=== PATIENT | female | born 1965 | race Caucasian/White ===

== ENCOUNTER 2022-04-08 21:19 | Emergency (ER) | payer MEDICAID, SELFPAY ==
--- NOTE | ~2022-04-08 | CT_ITS ---
EXAMINATION: CT ABDOMEN AND PELVIS WITHOUT CONTRAST CLINICAL INFORMATION: Hematuria COMPARISON: None TECHNIQUE: Multidetector volumetric imaging was performed from the superior aspect of the liver through the pubic symphysis. Sagittal and coronal reformatted images were obtained on the technologist's workstation. This CT examination was performed using dose optimization techniques as appropriate, variously including the following: *Automated exposure control *Adjustment of mA and/or kV according to patient size (this includes techniques or standardized protocols for targeted exams where dose is matched to indication/reason for exam; i.e. extremities or head) *Use of iterative reconstruction technique DLP: 905 mGy-cm FINDINGS: LUNG BASES: The visualized lung bases are unremarkable. LIVER, GALLBLADDER, AND BILIARY TREE: The liver is normal in size, shape, and attenuation. There are a couple benign cyst in the medial segment of liver and a 6 mm hypodensity in the lateral segment, too small to characterize but of doubtful clinical significance. No suspicious liver lesions. No biliary dilatation. Gallbladder unremarkable. PANCREAS: Unremarkable. SPLEEN: Unremarkable. ADRENAL GLANDS: Unremarkable. KIDNEYS AND URETERS: The kidneys are normal in size, shape, and attenuation. No hydronephrosis, hydroureter, or calculi seen. Subcentimeter hyperdense cyst emanates from the lower lateral cortex of left kidney. No follow-up required. Subcentimeter angiomyolipoma also present in the lower pole of the left kidney. No follow-up required. No perinephric stranding. BLADDER: Unremarkable. GASTROINTESTINAL TRACT: The small and large bowel are unremarkable. There are a few scattered colonic diverticula. No evidence of diverticulitis. The appendix is unremarkable. ABDOMINAL WALL: No significant hernia is appreciated. LYMPH NODES: Normal. VASCULAR: Unremarkable. PELVIC VISCERA: There is a 3 cm fibroid within the anterior uterus. Uterus and adnexa otherwise unremarkable. OSSEOUS STRUCTURES: Unremarkable. CT/CT abdomen pelvis wo IV con IMPRESSION: * No etiology for the patient's hematuria is identified. * There are a few scattered colonic diverticula without evidence of diverticulitis. Fleischner guidelines were followed.
[2022-04-08 21:26] VITALS: BP 134/73; PULSE 125; RESP 18; TEMP 36.2; O2SAT 98; BMI 46.5
[2022-04-08 21:59] LABS: MANUAL DIFF FLAG NO
[2022-04-08 22:01] LABS: Basophils Percent Auto 0.4 % (0-2); Eosinophils Absolute Auto 0.3 X10*3/uL (0.0-0.4); Hematocrit 38.8 % (37.0-47.0); Hemoglobin 12.2 g/dl (12.0-16.0); Imm Gran Abs Auto 0.02 X10*3/uL (0.00-0.03); Imm Gran Pct Auto 0.2 % (0.0-0.4); Lymphocytes Absolute Auto 2.2 X10*3/uL (1.2-4.9); Mean Corpuscular HGB Conc 31.4 g/dl (31.0-35.0); Mean Corpuscular Hemoglobin 25.3 pg (27.0-33.0); Mean Corpuscular Volume 80.3 fL (80.0-98.0); Mean Platelet Volume 9.9 fL (9.4-12.3); Monocytes Absolute Auto 0.6 X10*3/uL (0.1-1.2); Monocytes Percent Auto 6.7 % (2-11); Neutrophils Absolute Auto 5.4 x10*3/uL (2.0-8.3); Neutrophils Percent Auto 63.7 % (45-73); Platelet Count 294 X10*3/uL (160-400); Red Blood Count 4.83 X10*6/uL (4.20-5.50); Red Cell Distribution Width 15.6 % (11.0-16.0); White Blood Count 8.4 X10*3/uL (4.8-10.8)
[2022-04-08 22:01] LABS: Appearance Urine Clear; Color Urine Yellow; Glucose Urine UA Negative (Negative); Leukocyte Esterase Urine Small (1+) (Negative); Nitrite Urine Negative (Negative); UMIC TRIGGER UACC YES; Urine Blood Large (3+) (Negative); Urine Ketones Negative (Negative); Urine Protein Negative (Neg-Trace)
[2022-04-08 22:04] LABS: Bacteria Urine None Seen (None Seen); Hyaline Casts Urine 0-2 /LPF (0-2); RBC Urine >20 /HPF (0-2); UACC Culture Trigger YES
[2022-04-08 22:15] LABS: Alanine Aminotransferase 19 U/L (0-31); Alkaline Phosphatase 112 U/L (39-117); Anion Gap 17 (12-20); Aspartate Amino Transferase 16 U/L (5-31); Bilirubin Total 0.2 mg/dL (0.0-1.0); Blood Urea Nitrogen 21 mg/dL (9-16); Calcium 8.7 mg/dL (8.4-10.2); Carbon Dioxide 22 mmol/L (22-29); Chloride 103 mmol/L (96-108); Creatinine Clr Calc Pharmacy 85.7; Estimated Glomerular Filt Rate 60; Glucose Random 108 mg/dL (60-115); Potassium 4.1 mmol/L (3.3-5.1); Sodium 138 mmol/L (135-145); Total Protein 7.1 g/dL (6.5-8.0)
[2022-04-09 01:33] VITALS: BP 123/62; PULSE 80; RESP 18; TEMP 37.2; O2SAT 98
--- NOTE | 2022-04-09 01:33 | ED.GENADULT ---
HPI - General Adult General Chief complaint: General Medical Stated complaint: Vaginal Bleeding/ Fatigue Time Seen by Provider: 04/09/22 01:33 Source: patient Mode of arrival: ambulatory Limitations: no limitations History of Present Illness HPI narrative: Patient no significant medical history complaining of dysuria with blood no frequency no flank pain no abdominal pain feels a discomfort suprapubic area symptoms started since yesterday no nausea no vomiting no fever or chills Related Data Previous Rx's Medication Instructions Recorded cefuroxime axetil 250 mg tablet 250 mg PO BID 7 days #14 tabs 04/09/22 Allergies Allergy/AdvReac Type Severity Reaction Status Date / Time zolpidem Allergy Unknown Verified 04/12/19 00:00 No Known Allergies Allergy Unverified 12/20/19 17:57 Review of Systems Review of Systems: Yes all other systems are reviewed and are negative [facility] Social History Social History Advance Directives: No Advance Directives Information Provided: Yes Physical Exam ED Vital Signs: Vital Signs - 24 hr 04/08/22 21:26 Temperature 97.1 F Pulse Rate 125 H Respiratory Rate 18 Blood Pressure 134/73 Pulse Oximetry 98 Oxygen Delivery Method Room Air BMI result Body Mass Index 46.5 Appearance: Alert. Oriented X3. No acute distress. ENT: Pharynx normal. Oral Mucosa moist Neck: Normal inspection. Neck supple. CVS: Normal heart rate and rhythm. Pulses normal. Respiratory: No respiratory distress. Equal air entry bilateral, Abdomen: Soft and nontender. Bowel sounds are present, no mass palpable, no CVA tenderness Skin: Skin warm and dry. Normal skin color. Normal skin turgor. Extremities: No lower extremity edema. No calf tenderness Neuro: Oriented X 3. Medications Administered Discontinued Medications Generic Name Dose Route Start Last Admin Trade Name Freq PRN Reason Stop Dose Admin Cefuroxime Axetil 250 mg 04/09/22 02:42 04/09/22 02:52 Cefuroxime Axetil 250 Mg Tablet PO 04/09/22 02:43 250 mg ONCE ONE Administration Medical Decision Making Medical Decision Making [facility] Narrative: Patient workup negative showed just red cells in the urine CT scan negative for any acute pathology likely patient has hemorrhagic cystitis discharge patient home on Ceftin Lab Data [facility] Lab Attestation statement: I reviewed the patient's lab results. 04/08/22 21:43 04/08/22 21:43 Labs: Lab Results 04/08/22 04/08/22 04/08/22 Range/Units 21:43 21:43 21:48 WBC 8.4 (4.8-10.8) X10*3/uL RBC 4.83 (4.20-5.50) X10*6/uL Hgb 12.2 (12.0-16.0) g/dl Hct 38.8 (37.0-47.0) % MCV 80.3 (80.0-98.0) fL MCH 25.3 L (27.0-33.0) pg MCHC 31.4 (31.0-35.0) g/dl RDW 15.6 (11.0-16.0) % Plt Count 294 (160-400) X10*3/uL MPV 9.9 (9.4-12.3) fL Immature Gran % (Auto) 0.2 (0.0-0.4) % Neut % (Auto) 63.7 (45-73) % Lymph % (Auto) 26.0 (20-40) % [place] % (Auto) 6.7 (2-11) % Eos % (Auto) 3.0 (0-4) % Baso % (Auto) 0.4 (0-2) % Lymph # (Auto) 2.2 (1.2-4.9) X10*3/uL [place] # (Auto) 0.6 (0.1-1.2) X10*3/uL Eos # (Auto) 0.3 (0.0-0.4) X10*3/uL Baso # (Auto) 0.0 (0.0-0.2) X10*3/uL Abs Immat Gran (auto) 0.02 (0.00-0.03) X10*3/uL Absolute Neuts (auto) 5.4 (2.0-8.3) x10*3/uL Absolute Nucleated RBC 0.000 (0.0-0.012) X10*3/uL Nucleated RBC % (auto) 0.0 (0.0-0.2) /100WBC Sodium 138 (135-145) mmol/L Potassium 4.1 (3.3-5.1) mmol/L Chloride 103 (96-108) mmol/L Carbon Dioxide 22 (22-29) mmol/L Anion Gap 17 (12-20) BUN 21 H (9-16) mg/dL Creatinine 0.96 (0.5-1.4) mg/dL Estim Creat Clear Calc 85.7 Estimated GFR 60 Random Glucose 108 (60-115) mg/dL Calcium 8.7 (8.4-10.2) mg/dL Total Bilirubin 0.2 (0.0-1.0) mg/dL AST 16 (5-31) U/L ALT 19 (0-31) U/L Alkaline Phosphatase 112 (39-117) U/L Total Protein 7.1 (6.5-8.0) g/dL Albumin 4.0 (3.5-5.0) g/dL Urine Color Yellow Urine Appearance Clear Urine pH 5.0 (5.0-9.0) Ur Specific [place] 1.020 (1.005-1.025) Urine Protein Negative (Neg-Trace) mg/dL Urine Glucose (UA) Negative (Negative) mg/dL Urine Ketones Negative (Negative) mg/dL Urine Blood Large (3+) H (Negative) Urine Nitrite Negative (Negative) Ur Leukocyte Esterase Small (1+) H (Negative) Urine RBC >20 H (0-2) /HPF Urine WBC 11-20 H (0-5) /HPF Ur Squamous Epith Cells 3-5 (0-2) /HPF Urine Bacteria None Seen (None Seen) Hyaline Casts 0-2 (0-2) /LPF Discharge Plan Discharge Clinical Impression: Acute cystitis with hematuria Patient Disposition: Home, Self-Care Instructions: Urinary Tract Infection in Women (ED) Additional Instructions: Drink plenty of fluids Take antibiotic as prescribed Follow with PCP if bleeding continues or further evaluation Beber mucho l?quido [place] el antibi?ignacio seg?n lo prescrito Siga con PCP si el sangrado contin?a o evaluaci?n adicional Prescriptions: New cefuroxime axetil 250 mg tablet 250 mg PO BID 7 Days Qty: 14 0RF Interventions: ED Discharge Assessment Last Done: 04/09/22 02:53 Discharge Date/Time: 04/09/22 02:54 Print Language: Chinese
== END 2022-04-09 02:54 | disposition home or self-care (01) ==
PROVIDERS: Emergency Provider Internal Medicine; PCP Internal Medicine
DX: N30.01 Acute cystitis with hematuria (principal); Z79.899 Other long term (current) drug therapy
CPT/HCPCS: 36415; 74176; 80053; 81001; 81003; 85025; 87086; 99283; 99284

== ENCOUNTER 2022-05-04 12:21 | Outpatient (REF) | payer MEDICAID, SELFPAY ==
--- NOTE | ~2022-05-04 | US_ITS ---
EXAMINATION: US PELVIS COMPLETE CLINICAL INFORMATION: Postmenopausal bleeding COMPARISON: Pelvic ultrasound 12/03/2016 TECHNIQUE: Transabdominal and endovaginal imaging was performed. FINDINGS: The uterus is of normal size and echogenicity measuring 9.0 x 5.1 x 5.3 cm. Endometrium is thickened for the postmenopausal state measuring 1.4 cm in thickness, and given background heterogeneity makes an underlying lesion difficult to exclude. Nabothian cysts in the cervix. A 0.7 x 0.9 x 0.6 cm endocervical lesion with internal vascularity within the endocervical canal suggesting a cervical polyp, previously 3.1 x 1.8 x 2.3. A 1.3 cm myoma with a less than 50% submucosal component in the posterior wall of the uterus, previously 1.2 cm similar to prior, and a 2.3 cm right subserosal fundal myoma, previously 2.1 cm similar to prior Ovaries are obscured by bowel gas. No adnexal mass. There is trace simple pelvic free fluid. US/US pelvic and transvaginal IMPRESSION: Endometrium is heterogeneous and thickened, measuring 1.4 cm in thickness, and given the background heterogeneity a discrete underlying lesion would be difficult to exclude. Recommend gynecologic evaluation and management. A 0.9 cm endocervical lesion with internal vascularity suggesting a cervical polyp decreased in size from prior. This could be better characterized with dedicated saline sonohysterogram if warranted. Several small uterine myomas similar in size to prior. Trace simple pelvic free fluid. Ovaries were not identified sonographically. No adnexal mass.
== END 2022-05-04 12:22 | disposition home or self-care (01) ==
LOC: HO.US 12:21
PROVIDERS: PCP Internal Medicine; Visit Provider Internal Medicine
DX: N95.0 Postmenopausal bleeding (principal)
CPT/HCPCS: 76830; 76856

== ENCOUNTER 2022-12-04 20:47 | Emergency (ER) | payer MEDICAID, SELFPAY ==
--- NOTE | ~2022-12-04 | XR_ITS ---
EXAMINATION: XR KNEE, LEFT CLINICAL INFORMATION: Pain. COMPARISON: None available. TECHNIQUE: Four views of the left knee. FINDINGS: No fracture or joint effusion. Alignment is anatomic. Joint spaces are maintained. No abnormal soft tissue calcification. XR/XR knee LT 3V IMPRESSION: Normal left knee.
[2022-12-04 21:13] VITALS: BP 143/70; PULSE 90; RESP 18; TEMP 36.8; O2SAT 96; BMI 46.7
--- NOTE | 2022-12-04 23:10 | ED_ITS ---
HPI - Extremity Injury (Lower) General Chief Complaint: Extremity Injury, Lower Stated Complaint: left knee pain no inj Time Seen by Provider: 12/04/22 23:10 Source: patient Mode of arrival: ambulatory Limitations: no limitations History of Present Illness HPI Narrative: 57-year-old female with history of HTN, fibromyalgia, ARIAS, prediabetes, depression, anxiety, obesity who presents to the ER for evaluation of left knee pain for the last 4-6 weeks. No trauma. She states she has had pain through the inner knee and it has been getting worse. It is worsened with ambulation and weight bearing along with ROM. She states she has been intermittently taking advil with minimal relief. No radiation of the pain. No hip or ankle pain. No redness or swelling of the knee. MD complaint: knee injury Onset (ago): month(s) Injury: Left: knee Type of Injury: unknown Place: home Severity: severe Relieving factors: NSAID, immobilization and rest Exacerbating factors: weight bearing, movement and palpation Associated symptoms: able to partially bear weight Other symptoms: none Related Data Home Medications Medication Instructions Recorded Confirmed cholecalciferol (vitamin D3) 25 25 mcg PO DAILY 07/15/22 mcg (1,000 unit) tablet citalopram 40 mg tablet 40 mg PO DAILY 07/15/22 clobetasol 0.05 % topical cream 1 appl topical BID 07/15/22 ibuprofen 400 mg tablet 400 mg PO Q6H 07/15/22 losartan 50 mg tablet (Cozaar) 50 mg PO DAILY 07/15/22 metoprolol succinate 25 mg 25 mg PO DAILY 07/15/22 tablet,extended release 24 hr prazosin 2 mg capsule 2 mg PO BEDTIME 07/15/22 risperidone 0.5 mg tablet 0.75 mg PO BEDTIME 07/15/22 risperidone 1 mg tablet 1 mg PO BEDTIME 07/15/22 Previous Rx's Medication Instructions Recorded cefuroxime axetil 250 mg tablet 250 mg PO BID 7 days #14 tabs 04/09/22 naproxen 500 mg tablet 500 mg PO BID PRN pain #20 tabs 12/04/22 Allergies Allergy/AdvReac Type Severity Reaction Status Date / Time No Known Allergies Allergy Unverified 12/20/19 17:57 zolpidem AdvReac Unknown Unknown Verified 12/04/22 21:13 Review of Systems Review of Systems: Yes all other systems are reviewed and are negative [facility] Social History Social History (Updated 07/15/22 @ 14:25 by Nieves Chauhan RN) Alcohol intake: never Patient Tobacco Use Status: Never used Tobacco e-Cigarette/Vaping Use: Never Used Advance Directives: No Advance Directives Information Provided: Yes Physical Exam Vital Signs: Vital Signs: Last Vital Signs Temp 98.2 F 12/04/22 21:13 Pulse 90 12/04/22 21:13 Resp 18 12/04/22 21:13 BP 143/70 H 12/04/22 21:13 Pulse Ox 96 12/04/22 21:13 O2 Del Method Room Air 12/04/22 21:13 BMI result Body Mass Index 46.7 Appearance: Alert. Oriented X3. No acute distress. HEENT: normal inspection CVS: Normal heart rate and rhythm. Pulses normal. Respiratory: No respiratory distress. Skin: Skin warm and dry. Normal skin color. Normal skin turgor. No rashes. Extremities: obese lower extremities. no notable swelling of either knee. limited ROM with pain upon flexion at 90 degrees. tenderness along medial joint line. unable to assess for any joint laxiety. no tenderness in the popliteal fossa or calf. Neuro: Oriented X 3. No motor deficit. No sensory deficit. antalgic gait Medical Decision Making Medical Decision Making MDM Narrative: 47-year-old morbidly obese female with history of fibromyalgia, HTN, ARIAS, prediabetes, anxiety and depression who presents to the ER for evaluation nontraumatic left knee pain for the last 6 weeks. She is able to ambulate but with a limp. She has tenderness along the medial joint line with limited range of motion. No signs or symptoms of infection. X-ray is normal today. Pain is possibly due to osteoarthritis. She is overweight which is likely contributing to her pain. Will refer to orthopedics for further evaluation and treatment. Patient agrees with plan and is stable for discharge home. Differential Diagnosis Differential Diagnoses: The differential diagnosis associated with the presentation includes osteoarthritis, inflammatory arthritis, effusion, ligamentous injury, no evidence of gout or septic joint Independent Interpretation I performed an independent interpretation of an: Plain X-Ray Interpretation: no effusion or fracture, agree w/ radiology read Radiology Impression Discussion of test interpretation with radiology: I have reviewed the radiologist's reading. Radiologist Impression: EXAMINATION: XR KNEE, LEFT CLINICAL INFORMATION: Pain.? COMPARISON: None available.? TECHNIQUE: Four views of the left knee. FINDINGS: No fracture or joint effusion. Alignment is anatomic. Joint spaces are maintained. No abnormal soft tissue calcification.? XR/XR knee LT 3V IMPRESSION: Normal left knee. ? Independent Historian Clinical information obtained from an independent historian. History obtained from or confirmed by: Other (adult son at bedside) External Record Review External record reviewed: Prior outpatient labs and Prior outpatient radiology Prescription Management I considered prescription management with: Pain Medication Chronic Conditions Patient?s care impacted by: Other (obesity) Critical Care Time Critical Care Time Critical Care Time: No Discharge Plan Discharge Clinical Impression: Knee pain Patient Disposition: Home, Self-Care Instructions: Knee Pain (ED) Additional Instructions: Your x-ray today was normal. Rest your knee and elevate your it when possible. Recommend ANGELO wrap for support and compression. Use ice several times per day You may bear weight as tolerated. If pain is too severe, use crutches or a cane until better. Take the prescribed anti-inflammatory medication as directed Follow up Orthopedics for further evaluation - call for an appointment If you develop new or worsening symptoms call 911 or come back to the ER for further evaluation. Prescriptions: New naproxen 500 mg tablet 500 mg PO BID PRN (Reason: pain) Qty: 20 0RF No Action citalopram 40 mg tablet 40 mg PO DAILY clobetasol 0.05 % cream 1 appl topical BID cholecalciferol (vitamin D3) 25 mcg (1,000 unit) tablet 25 mcg PO DAILY losartan [Cozaar] 50 mg tablet 50 mg PO DAILY risperidone 0.5 mg tablet 0.75 mg PO BEDTIME ibuprofen 400 mg tablet 400 mg PO Q6H metoprolol succinate 25 mg tablet extended release 24 hr 25 mg PO DAILY risperidone 1 mg tablet 1 mg PO BEDTIME prazosin 2 mg capsule 2 mg PO BEDTIME cefuroxime axetil 250 mg tablet 250 mg PO BID 7 Days Qty: 14 0RF [place]: [facility] Group] [facility] [Primary Care Provider] - Print Language: Frisian
[2022-12-05 00:05] VITALS: BP 137/62; PULSE 85; RESP 16; O2SAT 96
== END 2022-12-05 00:06 | disposition home or self-care (01) ==
PROVIDERS: Emergency Provider Internal Medicine
DX: M25.562 Pain in left knee (principal); E66.9 Obesity, unspecified; Z68.42 Body mass index [BMI] 45.0-49.9, adult; I10 Essential (primary) hypertension; E11.9 Type 2 diabetes mellitus without complications; Z79.899 Other long term (current) drug therapy
CPT/HCPCS: 73562; 99283; 99284